=== PATIENT | male | born 1950 | race Caucasian/White ===

== ENCOUNTER 2024-01-26 08:30 | Outpatient (RCR) | payer MEDICARE, OTHER, SELFPAY ==
--- NOTE | 2023-12-17 15:25 | HP.PTEVAL_ITS ---
Patient's Visit Information Visit Information Visit Information: ALYSSA KEYES is a 73 year old M referred to Physical Therapy by MARIANA MACIAS with a diagnosis of Neurological gait dysfunction. Date of Evaluation: 12/17/23 Physical Therapist: Shayan Bejarano, PT, ATC Visit Plan Frequency: 2-3x /Week Duration: 4-6 Weeks Plan: B ankle DF stretches, Gait training with FGA activity, balance and p roprio, B LE strengthening, and HEP Subjective Subjective: Pt reports he has had B LE numbness for approximately 10 years. Pt notes his numbness has gradually worsened over the past year. Pt notes he went to the doctor and was diagnosed with polyneuropathy. Pt reports he has had a nerve conduction test and blood tests to find out what is causing his pain. Pt reports this has lead to him having decreased balance at this time. Pt reports he has had PT in the past for his balance concerns, but notes he still lacks balance at this time. Pt denies any recent falls. Pt notes he has stairs at home and is able to negotiate them reciprocally. Pt reports his feet are not in pain, but that he has a really weird feeling in his feet. Pt reports he is not limited with ADL's at this time. Pt notes he does not use an AD for ambulation at this time. Objective Objective: Neuro: B L4-5 dermatomes are hypo sensitive to light touch. All other B LE sensation is WNL to light touch. ROM: L ankle DF= 10, PF= 45; R ankle DF= 10, PF= 40 degrees MMT: L ankle DF= 36, PF= 40; R ankle DF= 38, PF= 48 #F Tu.32 seconds FGA: Balance/Special Test Scores Functional Gait Assessment Score: 21 % Disability: 30.0000 Lower Extremity Functional Score: 46 Goals Goal 1:: Increase B ankle DF ROM x 5 degrees to aid with normal gait mechanics Goal Time Frame: 4-6 Weeks Goal 2:: Pt will increase FGA score x 3-5 points to aid with preventing future falls Goal Time Frame: 4-6 Weeks Goal 3:: I with HEP Goal Time Frame: 4-6 Weeks Rehabilitation Potential Physical Therapy Diagnosis: Pt has unsteady gait at this time secondary to neural dysfunction in LE's Rehabilitation Potential: Good Anticipated Interventions Patient/Client Instruction: Educate patient on: Condition and Plan of Care For the Purpose of:: To improve self management Therapeutic Exercise to Include: Strength training, Balance training, Flexibilty training, Gait and locomotor training and Active ROM For the Purpose of:: To increase oxygenation perfusion, To improve muscle performance and motor function and To improve ability of physical actions for home/community/work/leisure Text: Thank you for the opportunity to evaluate your patient. For Medicare and Medicare HMO plans, please review the plan of care and approve it. It will need to be FAXED BACK to us at [phone] for Medicare purposes. For Medicare only, by signing this I certify the plan of care. Please let me know if there are questions or concerns regarding this plan of care. Physician Signature: Da te:
--- NOTE | 2024-01-26 09:36 | HP.PTDCSUM ---
Discharge Summary D/C summary: It has been my pleasure to treat ALYSSA KEYES referred by MARIANA MACIAS, with the diagnosis of Neurological gait dysfunction for a total of 13 visit(s). Discharge Date: Please see the following information for a summary of their discharge status. Subjective Subjective: Pt reports he is ready for discharge Overall Improvement % Improvement: 20 Objective Objective/Function: ROM: L ankle 12, R ankle 15 degrees FGA: 25/30 Pt is I with HEP Rx goals achieved Goals Goal 1:: Increase B ankle DF ROM x 5 degrees to aid with normal gait mechanics Goal Progress: Progressing Goal 2:: Pt will increase FGA score x 3-5 points to aid with preventing future falls Goal Progress: Goal Met Goal 3:: I with HEP Goal Progress: Goal Met Plan Plan: Discharge to HEP D/C Information d/c sentence: If there are questions or concerns regarding this patient's physical therapy, please feel free to call me at [phone]. Thank you for the referral of this patient. Sincerely, Shayan Bejarano, PT, ATC Balance/Gait/Functional tests Balance/Special Test Scores Functional Gait Assessment Score: 25 % Disability: 16.6700 Lower Extremity Functional Score: 59 Improvement % Improvement: 20
== END 2024-01-26 19:00 | disposition home or self-care (01) ==
LOC: PT 08:30
PROVIDERS: PCP Family Medicine
DX: R26.9 Unspecified abnormalities of gait and mobility (principal)
CPT/HCPCS: 97110; 97161; 97530